=== PATIENT | male | born 1995 | race Caucasian/White ===

== ENCOUNTER 2017-08-15 16:31 | Emergency (ER) | payer OTHER ==
[~2017-08-15] VITALS: Ht 182.9 cm; Wt 116.0 kg
[~2017-08-15 16:31] MED LIST: NOHOMEMEDS
[2017-08-15 17:15] VITALS: BP 147/75
[2017-08-15] MEDS ORDERED: KEFLEX500 MG PO (20:06)
[2017-08-15] MEDS ORDERED: NORCO 7.5/321 TABLET PO (20:06)
== END 2017-08-15 20:40 | disposition home or self-care (01) ==
LOC: EME 16:31
DX: S66.320A Laceration of extensor muscle, fascia and tendon of right index finger at wrist and hand level, initial encounter (principal); S61.212A Laceration without foreign body of right middle finger without damage to nail, initial encounter; S61.217A Laceration without foreign body of left little finger without damage to nail, initial encounter; W25.XXXA Contact with sharp glass, initial encounter
CPT/HCPCS: 99281; 99284